=== PATIENT | female | born 1970 | race Two or more races ===

== ENCOUNTER → 2016-09-10 | Outpatient (CLI) | payer OTHER ==
--- NOTE | 2016-09-10 17:32 | MA ---
Screening Digital Mammogram With iCAD Analysis Clinical Indications: Routine screening. Technique: Standard cephalocaudal and mediolateral oblique projections are obtained. The examination is processed by the iCAD computer-aided detection system. Comparison: No previous studies are available for comparison; new baseline examination. Breast density: Type C; Heterogeneously dense. Findings: CAD was reviewed. There is possible nodular asymmetry in the upper posterior right breast o n the oblique view. No suspicious microcalcifications are identified. Impression: Possible right breast nodular asymmetry requires further evaluation, BI-RADS 0. Recommendation: Spot compression assessment of the right breast with ultrasound suggested if the abno rmality persists on diagnostic evaluation. [facility] will send a result letter to the patient. Dense breast parenchyma diminishes mammographic sensitivity. Negative mammography should not preclude additional workup of a clinically suspicious finding. The patient's information is entered into a reminder system with a target due date for her next mammo gram.
== END ==
LOC: BMCIMAGING 13:59
DX: Z12.31 Encounter for screening mammogram for malignant neoplasm of breast (principal)
CPT/HCPCS: G0202

== ENCOUNTER → 2016-09-25 | Outpatient (CLI) | payer OTHER ==
--- NOTE | 2016-09-25 14:00 | MA ---
Right Diagnostic Digital Mammogram with iCAD Clinical Indications: Possible nodular Asymmetric density on recent screening mammogram. Technique: Digital spot compression mediolateral oblique and true lateral views. This examination wa s processed by the iCAD computer-aided detection system. Comparison: Recent mammogram. September 10, 2016 Breast Density: C, 50-75%. Findings: Previous asymmetric density identified is no longer detected on the additional views or peyman e lateral views. This is consistent with normal overlapping breast parenchyma. Computer-aided detecti on (iCAD) is negative. Impression: 1. No suspicious findings. 2. ACR BI-RADS 1: Negative right mammogram Recommendation: Annual mammograms with next screening mammograms in August 2017. [facility] will send a result letter to the patient. Negative mammography should not preclude additional workup of a clinically suspicious finding. Findings and recommendations have been discussed with the patient who agrees with the plan. The patient's information is entered into a reminder system with a target due date for her next mammo gram.
== END ==
LOC: BMCIMAGING 13:32
DX: N63 Unspecified lump in breast (principal)
CPT/HCPCS: G0206